=== PATIENT | female | born 1945 | race Caucasian/White ===

== ENCOUNTER 2017-12-10 08:54 | Outpatient (CLI) | payer MEDICARE, BC | END 2017-12-10 08:55 | disposition home or self-care (01) | LOC: BICMAMMO 08:54 | PROVIDERS: ATTEND Obstetrics & Gynecology | DX: Z12.31 Encounter for screening mammogram for malignant neoplasm of breast (principal); R92.1 Mammographic calcification found on diagnostic imaging of breast; Z80.3 Family history of malignant neoplasm of breast; Z85.89 Personal history of malignant neoplasm of other organs and systems | CPT/HCPCS: 77063; 77067 ==

== ENCOUNTER 2019-04-05 08:32 | Outpatient (CLI) | payer MEDICARE, BC ==
--- NOTE | 2019-04-05 10:17 | MMO ---
Bilateral MAMMO Bilat Screen [facility]. CLINICAL HISTORY: Patient is 73 years old and is seen for screening. The patient has the following family history of breast cancer: mother, at age 60, malignant (generic). The patient has a history of Skin cancer at age 53. VIEWS: The views performed were: bilateral craniocaudal with tomosynthesis; bilateral mediolateral oblique with tomosynthesis; and left mediolateral oblique. FILMS COMPARED: The present examination has been compared to prior imaging studies performed at [facility] on 12/20/2013, 01/09/2015, 01/15/2016 and 12/10/2017. This study has been interpreted with the assistance of computer-aided detection. MAMMOGRAM FINDINGS: The breasts are heterogeneously dense, which could obscure a lesion on mammography. There are no suspicious masses, suspicious calcifications, or new areas of architectural distortion. IMPRESSION: THERE IS NO MAMMOGRAPHIC EVIDENCE OF MALIGNANCY. A ROUTINE FOLLOW-UP MAMMOGRAM IN 1 YEAR IS RECOMMENDED. THE RESULTS OF THIS EXAM WERE SENT TO THE PATIENT. ACR BI-RADS Category 1 - Negative MAMMOGRAPHY NOTE: 1. A negative mammogram report should not delay a biopsy if a dominant of clinically suspicious mass is present. 2. Approximately 10% to 15% of breast cancers are not detected by mammography. 3. Adenosis and dense breasts may obscure an underlying neoplasm. Reported by: MARIAN GONZALEZ MD Electonically Signed: [id number]
== END 2019-04-05 08:33 | disposition home or self-care (01) ==
LOC: BICMAMMO 08:32
PROVIDERS: ATTEND Obstetrics & Gynecology
DX: Z12.31 Encounter for screening mammogram for malignant neoplasm of breast (principal); Z85.828 Personal history of other malignant neoplasm of skin; Z80.3 Family history of malignant neoplasm of breast
CPT/HCPCS: 77063; 77067

== ENCOUNTER 2020-04-12 10:49 | Outpatient (CLI) | payer MEDICARE, BC ==
--- NOTE | 2020-04-12 13:10 | MMO ---
Bilateral MAMMO Bilat Screen [facility]. CLINICAL HISTORY: Patient is 74 years old and is seen for screening. The patient has the following family history of breast cancer: mother, at age 60, malignant (generic). The patient has a history of Skin cancer at age 53. VIEWS: The views performed were: bilateral craniocaudal with tomosynthesis and bilateral mediolateral oblique with tomosynthesis. FILMS COMPARED: The present examination has been compared to prior imaging studies performed at [facility] on 01/09/2015, 01/15/2016, 12/10/2017 and 04/05/2019. This study has been interpreted with the assistance of computer-aided detection. MAMMOGRAM FINDINGS: The breasts are heterogeneously dense, which could obscure a lesion on mammography. Benign calcifications are noted bilaterally. There are no suspicious masses, suspicious calcifications, or new areas of architectural distortion. IMPRESSION: THERE IS NO MAMMOGRAPHIC EVIDENCE OF MALIGNANCY. A ROUTINE FOLLOW-UP MAMMOGRAM IN 1 YEAR IS RECOMMENDED. THE RESULTS OF THIS EXAM WERE SENT TO THE PATIENT. ACR BI-RADS Category 2 - Benign finding MAMMOGRAPHY NOTE: 1. A negative mammogram report should not delay a biopsy if a dominant of clinically suspicious mass is present. 2. Approximately 10% to 15% of breast cancers are not detected by mammography. 3. Adenosis and dense breasts may obscure an underlying neoplasm. Reported by: RICHIE HERNANDEZ MD Electonically Signed: [id number]
== END 2020-04-12 10:50 | disposition home or self-care (01) ==
LOC: BICMAMMO 10:49
PROVIDERS: ATTEND Obstetrics & Gynecology
DX: Z12.31 Encounter for screening mammogram for malignant neoplasm of breast (principal); Z80.3 Family history of malignant neoplasm of breast; Z85.828 Personal history of other malignant neoplasm of skin
CPT/HCPCS: 77063; 77067

== ENCOUNTER 2021-05-07 14:05 | Outpatient (CLI) | payer MEDICARE, BC | END 2021-05-07 14:06 | disposition home or self-care (01) | LOC: BICMAMMO 14:05 | PROVIDERS: ATTEND Obstetrics & Gynecology | DX: Z12.31 Encounter for screening mammogram for malignant neoplasm of breast (principal); Z80.3 Family history of malignant neoplasm of breast; Z85.828 Personal history of other malignant neoplasm of skin | CPT/HCPCS: 77063; 77067 ==

== ENCOUNTER 2022-06-25 15:04 | Outpatient (CLI) | payer MEDICARE, BC | END 2022-06-25 15:05 | disposition home or self-care (01) | LOC: BICMAMMO 15:04 | PROVIDERS: ATTEND Internal Medicine | DX: Z12.31 Encounter for screening mammogram for malignant neoplasm of breast (principal); R92.1 Mammographic calcification found on diagnostic imaging of breast; R92.8 Other abnormal and inconclusive findings on diagnostic imaging of breast; Z80.3 Family history of malignant neoplasm of breast | CPT/HCPCS: 77063; 77067 ==

== ENCOUNTER 2023-07-01 08:29 | Outpatient (CLI) | payer MEDICARE, BC | END 2023-07-01 08:30 | disposition home or self-care (01) | LOC: BICMAMMO 08:29 | PROVIDERS: ATTEND Internal Medicine | DX: Z12.31 Encounter for screening mammogram for malignant neoplasm of breast (principal); Z80.3 Family history of malignant neoplasm of breast | CPT/HCPCS: 77063; 77067 ==

== ENCOUNTER 2023-07-10 12:53 | Outpatient (CLI) | payer MEDICARE, BC | END 2023-07-10 12:54 | disposition home or self-care (01) | LOC: BICMAMMO 12:53 | PROVIDERS: ATTEND Internal Medicine | DX: Z13.820 Encounter for screening for osteoporosis (principal); M85.89 Other specified disorders of bone density and structure, multiple sites | CPT/HCPCS: 77080 ==

== ENCOUNTER 2024-06-01 08:36 | Outpatient (CLI) | payer MEDICARE | END 2024-06-01 08:37 | disposition home or self-care (01) | LOC: NM 08:36 | PROVIDERS: ATTEND Internal Medicine | DX: G20.C Parkinsonism, unspecified (principal) | CPT/HCPCS: 78803; A9584 ×2 ==

== ENCOUNTER 2024-08-15 13:32 | Observation (INO) | payer MEDICARE ==
[~2024-08-15 13:32] MED LIST: Iopamidol-370 76% 500 ML MDV (1 ML CHARGE) ONE
[2024-08-15 14:13] LABS: #Basophils 0.04 10x3/uL (0.0-0.2); %Basophils 0.3 % (0.0-1.0); %Eosinophils 0.9 % (0.0-10.0); %Lymphocytes 17.2 % (21.0-51.0); %Monocytes 7.3 % (0.0-10.0); %Neutrophils 73.5 % (42.0-75.0); Hematocrit 50.7 % (36.0-47.0); Mean Corpuscular HGB CONC 33.5 g/dL (32.0-36.0); Mean Corpuscular Hemoglobin 30.5 pg (27.0-31.0); Mean Corpuscular Volume 90.9 fL (78.0-98.0); Mean Platelet Volume 8.9 fL (7.4-10.4); Platelet Count 283 10x3/uL (130-400); RBC Distribution Width 13.3 % (11.5-14.5); Red Blood Cell (RBC) Count 5.58 mill/uL (4.20-5.40)
[2024-08-15 14:28] LABS: ALT (SGPT) 54 U/L (Less than 34); AST (SGOT) 54 U/L (11-34); Albumin 3.2 g/dL (3.1-4.5); Alkaline Phosphatase 94 U/L (40-110); Anion Gap 11 mmol/L (10-20); BUN (Urea Nitrogen) 23 mg/dL (9.8-20.1); Bilirubin, Total 0.5 mg/dL (0.3-1.2); Calc. Creatinine Clearance 0 mL/min (70-130); Calcium 9.7 mg/dL (7.8-10.44); Carbon Dioxide 29 mmol/L (23-31); Chloride 99 mmol/L (98-107); Estimated GFR 91; Globulin 4.4 g/dL (2.4-3.5); Glucose 102 mg/dL (83-110); Potassium 4.1 mmol/L (3.5-5.1); Protein, Total 7.6 g/dL (5.8-8.1); Sodium 135 mmol/L (136-145)
[2024-08-15 14:32] LABS: Troponin I 0.063 ng/mL (< 0.028)
[2024-08-15 16:04] LABS: PTT 28.4 sec (22.9-36.1); Prothrombin Time 13.1 sec (12.0-14.7)
[2024-08-15 16:22] LABS: Lipase 29 U/L (8-78); Magnesium 2.2 mg/dL (1.6-2.6)
[2024-08-15] MEDS ORDERED: Sodium Chloride 0.9% 100 ML ONE (18:30)
[2024-08-15] MEDS ORDERED: cefTRIAXone (ROCEPHIN) 2 GM VIAL ONE (18:30)
[2024-08-15] MEDS ORDERED: Aspirin Chewable 81 MG TAB ONE (19:19)
[2024-08-15] MEDS ORDERED: Azithromycin 500 MG VIAL ONE (19:19)
[2024-08-15 22:43] LABS: Troponin I 0.077 ng/mL (< 0.028)
[2024-08-15 23:31] VITALS: BMI 18.5
[2024-08-16] MEDS: Vancomycin 1 GM in Premix 1 BAG IVPB SCH (01:04)
[2024-08-16 02:01] LABS: Troponin I 0.084 ng/mL (< 0.028)
[2024-08-16 02:22] LABS: Vancomycin, Random Less than 1.4 ug/mL (See Comment)
[2024-08-16] MEDS: Cefepime 2 GM in Sodium Chloride 0.9% 100 ML IVPB SCH (02:30)
[2024-08-16 03:03] LABS: Cardiac Risk 3.1 (Less than 4.5)
[2024-08-16] MEDS: Enoxaparin 40 MG (0.4 mL) SYRINGE SC SCH (10:21)
[2024-08-16] MEDS: Aspirin Chewable 81 MG TAB PO SCH (10:21)
[2024-08-16] MEDS: Vancomycin HCl 750 MG in Sodium Chloride 0.9% 250 ML 250 ML IVPB SCH (11:48)
[2024-08-16] MEDS ORDERED: Ipratropium/Albuterol 3 ML NEB NEB PRN (12:31)
[2024-08-16] MEDS ORDERED: Senokot S 8.6-50 MG TAB PO PRN (12:31)
[2024-08-16] MEDS: Azithromycin 500 MG in Sodium Chloride 0.9% 250 ML 250 ML IVPB SCH (16:25)
[2024-08-16] MEDS: Budesonide 0.5 MG/2 ML NEB INH SCH (20:05)
[2024-08-16 22:17] LABS: Influenza A by NAA Not Detected (NotDetected); Influenza B by NAA Not Detected (NotDetected); SARS-CoV-2 NAA Rapid Test Not Detected (NotDetected)
[2024-08-17 05:49] LABS: #Basophils Less than 0.03 10x3/uL (0.0-0.2); %Basophils 0.3 % (0.0-1.0); %Eosinophils 2.5 % (0.0-10.0); %Lymphocytes 30.5 % (21.0-51.0); %Monocytes 10.3 % (0.0-10.0); %Neutrophils 55.7 % (42.0-75.0); Hematocrit 45.9 % (36.0-47.0); Hemoglobin 15.6 g/dL (12.0-16.0); Mean Corpuscular Hemoglobin 30.4 pg (27.0-31.0); Mean Corpuscular Volume 89.3 fL (78.0-98.0); Platelet Count 216 10x3/uL (130-400); RBC Distribution Width 13.4 % (11.5-14.5); Red Blood Cell (RBC) Count 5.14 mill/uL (4.20-5.40)
[2024-08-17 06:10] LABS: ALT (SGPT) 38 U/L (Less than 34); AST (SGOT) 47 U/L (11-34); Albumin 2.9 g/dL (3.1-4.5); Alkaline Phosphatase 76 U/L (40-110); Anion Gap 12 mmol/L (10-20); BUN (Urea Nitrogen) 14 mg/dL (9.8-20.1); Bilirubin, Total 0.7 mg/dL (0.3-1.2); Calc. Creatinine Clearance 88 mL/min (70-130); Calcium 8.6 mg/dL (7.8-10.44); Carbon Dioxide 24 mmol/L (23-31); Chloride 105 mmol/L (98-107); Estimated GFR 97; Globulin 3.5 g/dL (2.4-3.5); Glucose 82 mg/dL (83-110); Potassium 4.2 mmol/L (3.5-5.1); Protein, Total 6.4 g/dL (5.8-8.1); Sodium 137 mmol/L (136-145)
[2024-08-17 06:15] LABS: Vancomycin, Random 8.9 ug/mL (See Comment)
[2024-08-17] MEDS: Donepezil HCl 5 MG TAB PO SCH (08:01)
[2024-08-17] MEDS: Cholecalciferol 1,000 UNITS (25 MCG) TAB PO SCH (08:01)
[2024-08-17] MEDS: FLUoxetine HCl 20 MG CAP PO SCH (08:01)
[2024-08-17] MEDS ORDERED: Non-Formulary Item 1 EACH (Prednisone [Prednisone] 10 MG Tablet) PO SCH (09:00)
[2024-08-17] MEDS: predniSONE 20 MG TAB PO SCH (10:32)
[2024-08-17 10:51] LABS: Troponin I 0.095 ng/mL (< 0.028)
[2024-08-17 12:27] VITALS: BP 100/60; TEMP 97.8
== END 2024-08-17 12:54 | disposition home or self-care (01) ==
LOC: ERS 13:32 → OBS 19:04
PROVIDERS: ADMIT Hospitalist; ATTEND Internal Medicine
PROC: B24BZZZ Ultrasonography of Heart with Aorta (ICD-10-PCS; principal; 2024-08-15)
DX: R07.89 Other chest pain (principal); R79.89 Other specified abnormal findings of blood chemistry; J96.01 Acute respiratory failure with hypoxia; J18.9 Pneumonia, unspecified organism; J45.909 Unspecified asthma, uncomplicated; F41.9 Anxiety disorder, unspecified; E87.1 Hypo-osmolality and hyponatremia; E86.0 Dehydration; E44.0 Moderate protein-calorie malnutrition; Z68.1 Body mass index [BMI] 19.9 or less, adult; Z90.89 Acquired absence of other organs; Z88.0 Allergy status to penicillin; Z88.2 Allergy status to sulfonamides; Z79.51 Long term (current) use of inhaled steroids; Z79.899 Other long term (current) drug therapy
CPT/HCPCS: 0240U; 71045; 71275; 80053 ×2; 80061; 80202 ×2; 83605; 83690; 83735; 83880; 84145; 84484 ×4; 85025 ×2; 85610; 85730; 86141; 87040; 87081; 93005; 93306; 94640 ×2; 94760; 96365; 96375 ×2; 96376; 99285; G0378 ×4; J0456 ×2; J0692; J0696; J1650 ×2; J3370 ×2; J7050; Q9967; 36415; J7512; J7626